=== PATIENT | female | born 1995 | race Caucasian/White ===

== ENCOUNTER 2018-03-18 11:11 | Inpatient (IN) | payer SELFPAY ==
[~2018-03-18] VITALS: Ht 154.9 cm; Wt 62.6 kg
[2018-03-18] MEDS ORDERED: METHYLERGONOVINE 0.2 MG/ML AMP IM PRN (11:20)
[2018-03-18] MEDS ORDERED: CARBOPROST 250 MCG/ML AMP IM PRN (11:20)
[2018-03-18] MEDS ORDERED: OXYTOCIN 10 UNITS/ML VIAL IM SCH (11:20)
[2018-03-18] MEDS ORDERED: PROMETHAZINE 25 MG/ML VIAL IVP PRN (11:20)
[2018-03-18] MEDS ORDERED: NALBUPHINE 10 MG/ML AMP IVP PRN (11:20)
[2018-03-18] MEDS ORDERED: AMPICILLIN 2,000 MG VIAL ONE (11:28)
[2018-03-18] MEDS: AMPICILLIN 2,000 MG in NACL 0.9% MINI-BAG PLUS 100 ML IV SCH ×3 (11:40→17:09)
[2018-03-18 12:02] LABS: BASOPHILS % (AUTO) 0.4 % (0.0-2.0); EOSINOPHILS % (AUTO) 0.1 % (0.0-4.0); LYMPHOCYTES # (AUTO) 1.9 K/uL (2.5-16.5); LYMPHOCYTES % (AUTO) 20.2 % (20.5-51.1); MEAN CORPUSCULAR HEMOGLOBIN 31 pg (27-31); MEAN CORPUSCULAR HGB CONC 33 g/dL (33-37); MEAN CORPUSCULAR VOLUME 91.3 fL (80-94); MONOCYTES # (AUTO) 0.5 K/uL (0.8-1.0); MONOCYTES % (AUTO) 5.9 % (1.7-9.3); NEUTROPHILS # (AUTO) 6.7 K/uL (1.8-7.7); NEUTROPHILS % (AUTO) 73.4 % (42.2-75.2); PLATELET COUNT (AUTO) 157 K/uL (140-450); RED BLOOD CELL COUNT(AUTO) 3.94 MIL/uL (4.20-5.40); RED CELL DISTRIBUTION WIDTH 13.4 % (11.6-13.7); WHITE BLOOD COUNT (AUTO) 9.2 K/uL (4.8-10.8)
[2018-03-18 12:34] LABS: ANION GAP 14.4 (8-16); CARBON DIOXIDE 21.5 mmol/L (21-32); CREATININE 0.7 mg/dL (0.6-1.3); POTASSIUM 3.9 mmol/L (3.5-5.1)
[2018-03-18 12:37] LABS: APPEARANCE,URINE CLEAR (CLEAR); BILIRUBIN,URINE NEGATIVE (NEGATIVE); BLOOD, URINE NEGATIVE (NEGATIVE); COLOR,URINE YELLOW (YELLOW); LEUKOCYTE ESTERASE ,URINE NEGATIVE (NEGATIVE); NITRITE, URINE NEGATIVE (NEGATIVE); UGLUCOSE NEGATIVE (NEGATIVE)
[2018-03-18 12:40] LABS: BARBITURATE, URINE NEG. ng/ml (NEG <=200); BENZODIAZEPINE, URINE NEG. ng/mL (NEG <=200); CANNABINOID, URINE NEG. ng/mL (NEG <=50); COCAINE, URINE NEG. ng/mL (NEG <=300); OPIATE, URINE NEG. ng/mL (NEG <=2000); PHENCYCLIDINE SCREEN,URINE NEG. ng/mL (NEG <=25)
[2018-03-18 12:43] LABS: ALBUMIN 3.1 g/dL (3.4-5.0); TOTAL BILIRUBIN 0.2 mg/dL (0.0-1.0)
[2018-03-18 12:49] LABS: RBC,URINE 0-5 (RARE) /HPF (0-5)
[2018-03-18] MEDS ORDERED: NALBUPHINE 10 MG/ML AMP ONE (13:17)
[2018-03-18] MEDS ORDERED: PROMETHAZINE 25 MG/ML VIAL ONE (13:17)
[2018-03-18] MEDS ORDERED: LABETALOL 200 MG TAB PO SCH (14:30)
[2018-03-18] MEDS ORDERED: LABETALOL 200 MG TAB ONE ×2 (14:48→20:21)
[2018-03-18 14:52] VITALS: BP 124/86
[2018-03-18] MEDS ORDERED: OXYTOCIN 20 UNITS in LACTATED RINGERS 1,000 ML IV SCH (15:25)
[2018-03-18] MEDS ORDERED: BUPIVACAINE 0.125%/NS PREMIX 250 ML EPI SCH (15:25)
[2018-03-18] MEDS: AMPICILLIN 1,000 MG in NACL 0.9% MINI-BAG PLUS 50 ML IV SCH ×3 (15:40→23:37)
[2018-03-18] MEDS: LACTATED RINGERS 1,000 ML IV SCH (15:42)
[2018-03-18] MEDS ORDERED: AMPICILLIN 1,000 MG VIAL ONE ×3 (15:51→23:37)
[2018-03-18] MEDS ORDERED: MAG SULF 2000 MG/WATER PREMIX 50 ML IV ONE (20:00)
[2018-03-18] MEDS ORDERED: MAG SULF 20 GM/H2O PREMIX DRIP 500 ML IV ONE (20:21)
[2018-03-18] MEDS ORDERED: MAG SULF 2000 MG/WATER PREMIX 50 ML IV SCH (20:30)
[2018-03-18] MEDS ORDERED: LABETALOL 100 MG TAB PO SCH ×2 (21:00)
[2018-03-19] MEDS: LACTATED RINGERS 1,000 ML IV SCH (01:35)
[2018-03-19] MEDS ORDERED: ACETAMINOPHEN 325 MG TAB PO PRN ×2 (03:20→21:00)
[2018-03-19] MEDS ORDERED: ACETAMINOPHEN 325 MG TAB ONE (03:26)
[2018-03-19] MEDS: AMPICILLIN 1,000 MG in NACL 0.9% MINI-BAG PLUS 50 ML IV SCH ×3 (03:38→20:12)
[2018-03-19] MEDS ORDERED: AMPICILLIN 1,000 MG VIAL ONE ×5 (03:41→20:12)
[2018-03-19] MEDS ORDERED: ROPIVACAINE 0.2%/NS PREMIX 0 ML EPI ONE (04:12)
[2018-03-19] MEDS ORDERED: BUPIVACAINE 0.125%/NS PREMIX 250 ML ONE (04:15)
[2018-03-19] MEDS ORDERED: MAG SULF 20 GM/H2O PREMIX DRIP 500 ML IV ONE ×2 (05:54→15:11)
[2018-03-19 07:14] LABS: HEPATITIS B SURFACE ANTIGEN Negative (Negative)
[2018-03-19] MEDS ORDERED: LABETALOL 200 MG TAB ONE ×2 (09:10→21:07)
[2018-03-19 10:46] LABS: MAGNESIUM 7.3 mg/dL (1.8-2.4)
[2018-03-19] MEDS ORDERED: LIDOCAINE 1% 500 MG/50 ML VIAL ONE (12:25)
[2018-03-19] MEDS ORDERED: OXYTOCIN 10 UNITS/ML VIAL ONE (14:05)
[2018-03-19] MEDS ORDERED: LABETALOL 100 MG/20 ML VIAL ONE (14:46)
[2018-03-19] MEDS ORDERED: OXYTOCIN 20 UNITS/LR PREMIX 1,000 ML IV ONE (16:07)
[2018-03-19] MEDS ORDERED: NIFEdipine 10 MG CAPLF ONE ×2 (18:46→18:50)
[2018-03-19] MEDS ORDERED: OXYTOCIN 20 UNITS in LACTATED RINGERS 1,000 ML IV SCH (20:57)
[2018-03-19] MEDS ORDERED: BISACODYL 5 MG TABEC PO PRN (21:00)
[2018-03-19] MEDS ORDERED: BENZOCAINE/MENTHOL 20%-0.5% 60 GM CAN TP PRN (21:00)
[2018-03-19] MEDS ORDERED: SODIUM PHOSPHATE 118 ML ENEM RC PRN (21:00)
[2018-03-19] MEDS ORDERED: MEASLES, MUMPS, AND RUBELLA 1 VIAL SQVAC PRN (21:00)
[2018-03-19 22:59] LABS: MAGNESIUM 5.3 mg/dL (1.8-2.4)
[2018-03-20 04:13] LABS: MAGNESIUM 5.5 mg/dL (1.8-2.4)
--- NOTE | 2018-03-20 06:18 | NUR ---
PATIENT HAS BEEN SCREENED AND CATEGORIZED LOW NUTRITION RISK. PATIENT WILL BE SEEN WITHIN 7 DAYS OF ADMISSION. 03/26/18 RITA PALACIO MS, RDN
[2018-03-20] MEDS: LABETALOL 200 MG TAB PO SCH ×2 (09:12→21:03)
[2018-03-20] MEDS ORDERED: LABETALOL 200 MG TAB ONE (09:14)
[2018-03-20] MEDS ORDERED: MAG SULF 20 GM/H2O PREMIX DRIP 500 ML IV ONE (09:22)
[2018-03-20 10:31] LABS: BASOPHILS # (AUTO) 0.1 K/uL (0.00-0.22); BASOPHILS % (AUTO) 0.4 % (0.0-2.0); EOSINOPHILS % (AUTO) 0.3 % (0.0-4.0); HEMATOCRIT 32.2 % (36-48); HEMOGLOBIN 10.7 g/dL (12.0-16.0); LYMPHOCYTES # (AUTO) 1.6 K/uL (2.5-16.5); LYMPHOCYTES % (AUTO) 12.6 % (20.5-51.1); MEAN CORPUSCULAR HEMOGLOBIN 31 pg (27-31); MEAN CORPUSCULAR HGB CONC 33 g/dL (33-37); MEAN CORPUSCULAR VOLUME 92.1 fL (80-94); MONOCYTES # (AUTO) 0.7 K/uL (0.8-1.0); MONOCYTES % (AUTO) 5.6 % (1.7-9.3); NEUTROPHILS # (AUTO) 10.5 K/uL (1.8-7.7); NEUTROPHILS % (AUTO) 81.1 % (42.2-75.2); PLATELET COUNT (AUTO) 123 K/uL (140-450); RED BLOOD CELL COUNT(AUTO) 3.49 MIL/uL (4.20-5.40); RED CELL DISTRIBUTION WIDTH 13.6 % (11.6-13.7)
[2018-03-20] MEDS ORDERED: PREN-380 PO (14:07)
[2018-03-20] MEDS ORDERED: INFLUENZA VIRUS VACCINE QUAD 0.5 ML SYR IMVAC PRN (20:00)
[2018-03-20] MEDS ORDERED: FERR325E14 PO (21:10)
[2018-03-20] MEDS ORDERED: TRA200 PO (21:11)
[2018-03-20] MEDS ORDERED: [UNRECOGNIZED DRUG - CODE] PO (21:14)
[2018-03-20] MEDS ORDERED: NIFEdipine 10 MG CAPLF ONE (22:25)
[2018-03-20] MEDS ORDERED: NIFEdipine 10 MG CAPLF PO SCH (22:30)
== END 2018-03-20 23:45 | disposition home or self-care (01) | DRG 807 ==
LOC: MLD 11:11 → MFCC 03-20 14:35
PROVIDERS: ADMIT Obstetrics & Gynecology; ATTEND Obstetrics & Gynecology
PROC: 10E0XZZ Delivery of Products of Conception, External Approach (ICD-10-PCS; principal; 2018-03-18)
PROC: 0HQ9XZZ Repair Perineum Skin, External Approach (ICD-10-PCS; 2018-03-18)
PROC: 3E0R3BZ Introduction of Anesthetic Agent into Spinal Canal, Percutaneous Approach (ICD-10-PCS; 2018-03-18)
PROC: 00HU33Z Insertion of Infusion Device into Spinal Canal, Percutaneous Approach (ICD-10-PCS; 2018-03-18)
DX: O69.1XX0 Labor and delivery complicated by cord around neck, with compression, not applicable or unspecified (principal); Z37.0 Single live birth; O70.0 First degree perineal laceration during delivery; O13.4 Gestational [pregnancy-induced] hypertension without significant proteinuria, complicating childbirth; Z3A.38 38 weeks gestation of pregnancy
CPT/HCPCS: 36415; 51702; 76805; 80053; 80305; 81001; 82310; 83735; 85025; 85379; 85384; 85610; 85730; 86592; 86762; 86886; 86900; 86901; 87086; 87340; 87653-90; J0290; J2001; J2300; J2550; J2590; J2795; J3475; J3490; J7120; Q0092